=== PATIENT | female | born 1980 | race Two or more races ===

== ENCOUNTER 2017-09-04 07:28 | Emergency (ER) | payer OTHER ==
[~2017-09-04] VITALS: Ht 160 cm; Wt 59.0 kg
[2017-09-04] MEDS ORDERED: ACETAMINOPHEN-1 EAC1 ORAL (07:53)
[2017-09-04] MEDS ORDERED: SILVADENE20 GM TP (07:53)
[2017-09-04] MEDS ORDERED: Tylenol #3 tab (300mg/30mg) ORAL ONE (08:00)
[2017-09-04 08:08] VITALS: BP 121/77
[2017-09-04 08:10] VITALS: BP 121/77
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
== END 2017-09-04 08:30 | disposition home or self-care (01) ==
LOC: EMR 07:50
DX: T23.251A Burn of second degree of right palm, initial encounter (principal); X15.2XXA Contact with hotplate, initial encounter; Y92.59 Other trade areas as the place of occurrence of the external cause; Y99.0 Civilian activity done for income or pay
CPT/HCPCS: 99284